=== PATIENT | male | born 1970 | race Caucasian/White ===

== ENCOUNTER 2016-05-13 13:45 | Inpatient (IN) | payer MEDICAID ==
--- NOTE | ~2016-05-13 | PN ---
Unit #: [id number] #: [id number] Patient: ARTIS LEÓN [id number] [facility] [address] [place] [address] [id number] I MR#: [id number] NAME: ARTIS LEÓN ROOM: [facility] Age: 45 Sex: M Admission Date: 05/13/2016 : 1970 Attending Physician: Carmen Barraza M.D. Admitting Physician: Stanford Stoddard PROGRESS NOTES DATE May 19, 2016 DISCUSSION Mr. León is a 45-year-old white male, who was seen today and chart was reviewed and the case was discussed with the staff. He has been anxious, withdrawn, but has been rather seclusive to himself. Meanwhile, he has been cooperative with the treatment recommendations and has been taking the medications and tolerating them fairly well with no reported side effects. MENTAL STATUS EXAMINATION Middle-aged white male, who was casually dressed with fair personal hygiene and appears to be in no acute distress or discomfort. He was awake and alert on interaction with intact orientation. His mood is anxious with a congruent affect. His speech is slow and goal-directed. He denies any suicidal or homicidal ideations. His insight and judgment remain slightly impaired. TREATMENT PLAN 1. We will continue him on his current medications and treatment protocol, and will monitor his response to the medications, and make further adjustments as needed. 2. We will continue to followup. Dictated by... Stanford Stoddard/bear TD: 05/20/2016 09:51 JOB #: [id number] Unit #: [id number] #: [id number] Patient: ARTIS LEÓN PROGRESS NOTES Page 1 of 1 X Carmen Barraza MD X PROGRESS NOTE
--- NOTE | ~2016-05-13 | PN ---
Unit #: [id number] #: [id number] Patient: ARTIS LEÓN [id number] [facility] [address] [place] [address] [id number] MR#: [id number] NAME: ARTIS LEÓN ROOM: [facility] Age: 45 Sex: M Admission Date: 05/13/2016 : 1970 Attending Physician: Carmen Barraza M.D. Admitting Physician: Stanford Stoddard PROGRESS NOTES DATE OF SERVICE: 05/17/2016 SUBJECTIVE Mr. León is a 45-year-old white male with alcohol dependence and mood disorder, who was seen today and chart was reviewed and the case was discussed with the staff. He has been anxious, withdrawn, unkempt, disheveled, disorganized, laying in his bed, and reports not feeling good and has been shaky and tremulous and complaining of upper respiratory infection and has been coughing and reports that he has dry hacking cough with sputum and has not been able to take care of his personal hygiene. MENTAL STATUS EXAMINATION Middle-aged white male, who was casually dressed with marginal personal hygiene, appears to be in distress and discomfort. He was awake and alert with intact orientation. His mood was anxious with a congruent affect. His speech was slow and restricted in content. He denies any suicidal or homicidal ideation and also denies any auditory or visual hallucinations. His insight and judgment remain slightly impaired. TREATMENT PLAN 1. We will continue him on his current treatment protocol. We will monitor his response to the medications and make further adjustments as needed. 2. We will continue to follow up. Dictated by... Stanford Stoddard/linh TD: 05/17/2016 13:26 JOB #: [id number] Unit #: [id number] #: [id number] Patient: ARTIS LEÓN PROGRESS NOTES Page 1 of 1 X Carmen Barraza MD PROGRESS NOTE
--- NOTE | ~2016-05-13 | PA ---
Unit #: [id number] #: [id number] Patient: ARTIS LEÓN [id number] [facility] [address] [place] [address] [id number] MR#: [id number] NAME: ARTIS LEÓN ROOM: [facility] Age: 45 Sex: M Admission Date: 05/13/2016 : 1970 Date of Assessment: 05/13/2016 Attending Physician: Carmen Barraza M.D. Admitting Physician: Carmen Barraza M.D. PSYCHIATRIC ASSESSMENT DATE OF SERVICE 05/13/2016. IDENTIFYING DATA Mr. León is a 45-year-old single white male, who is a resident of [place], [place], and was transferred to us from [facility] on a voluntary basis and had a blood alcohol level of 0.103. CHIEF COMPLAINT Withdrawing from alcohol. HISTORY OF PRESENT ILLNESS Mr. León is a 45-year-old white male, who presented to the emergency room at [facility] in [place], [place], with alcohol withdrawal symptoms including shakiness and nausea and stomach cramps and sensitive to light and numbness on his fingers, increasing anxiety, depression, and had a CIWA score of 12 indicating significant withdrawal symptoms. He reports that he has been drinking fluid, 4 ounces of beers to two-fifth of whiskey a day for the past year with longest sobriety of 3 days and was seen to be in acute distress or discomfort. He denies any other substance abuse. He does report depression, anxiety, and irritability, and restlessness, disturbed sleep, appetite, poor energy level, psychomotor retardation. Reports that he attempted suicide at the age of 20 by cutting his wrist and reports that he has thoughts of wanting to with increasing depression over the last winter. He currently denies any suicidal thoughts, intent, or plan. SUBSTANCE ABUSE HISTORY The patient reports that he has been drinking since he was 7 years old and currently has been drinking up to 2/5 a day and denies any other drug abuse and reports alcohol to be his drug of choice. PAST PSYCHIATRIC HISTORY The patient has had history of inpatient chemical dependency treatment at [facility] in [place], [place] in the past and currently he is not active in any treatment program. He is not seeing a psychiatrist, and not taking any psychotropic medications. PAST MEDICAL HISTORY No acute or chronic medical illnesses. ALLERGIES Penicillin. Unit #: [id number] #: [id number] Patient: ARTIS LEÓN PERSONAL AND SOCIAL HISTORY A 45-year-old white male, who reports that he is single, unemployed, and essentially homeless and has poor social support system. MENTAL STATUS EXAMINATION Middle-aged white male, who was casually dressed with fair personal hygiene, appears to be in no acute distress or discomfort. He was awake and alert on interaction with intact orientation to time, place, and person. His mood was anxious and depressed with a congruent affect. His speech was slow and restricted in content. His thought processes were disorganized with some looseness of associations and flight of ideas and suicidal ideations. His insight and judgment remain significantly impaired. DIAGNOSTIC IMPRESSION Psychiatric: Alcohol dependence, moderate, in acute withdrawals; alcohol-induced mood disorder. Medical: None. Stressors: Psychosocial stressors. TREATMENT PLAN 1. The patient has presented with a history of alcohol dependence and mood disorder, and has been decompensating and will need inpatient hospitalization for detoxification and safety and stabilization. We will start him back on his home medications. We will adjust the medications and monitor response. 2. Supportive therapy was provided to the patient. 3. Safe, structured, and nourishing environment will be reported. ESTIMATED LENGTH OF STAY 5 to 7 days. ABILITY TO HELP SELF Limited. WILLINGNESS TO HELP SELF The patient appears to be willing to help self. STRENGTHS 1. Communicative. 2. Cooperative. PROBLEMS 1. Chronic dysphoric symptoms. 2. Poor social support system. DISCHARGE CRITERIA This will be contingent upon the patient's ability to show resolution of his depression and anxiety and his ability to stay safe to himself, particularly after discharge from the hospital. Dictated by... Stanford Stoddard/linh Unit #: [id number] #: [id number] Patient: ARTIS LEÓN TD: 05/14/2016 06:42 JOB #: [id number] PSYCHIATRIC ASSESSMENT Page 1 of 1 X Carmen Barraza MD PSYCHIATRIC ASSESSMENT
--- NOTE | ~2016-05-13 | HP ---
Unit #: [id number] #: [id number] Patient: RAPHAEL LEÓN [id number] [facility] [address] [place] [address] [id number] MR#: [id number] NAME: RAPHAEL LEÓN ROOM: [facility] Age: 45 Sex: M Admission Date: 05/13/2016 : 1970 Attending Physician: Carmen Barraza M.D. Admitting Physician: Carmen Barraza M.D. HISTORY AND PHYSICAL HISTORY OF PRESENT ILLNESS Raphael is a 45 year old admitted to [facility] because of his abuse of alcohol. He is detoxing. PAST MEDICAL HISTORY History of alcohol abuse. PAST SURGICAL HISTORY Nothing reported. ALLERGIES Penicillin. SOCIAL HISTORY Smokes one pack per day. Drinks two fifths of liquor on a daily basis and denies illicit drug use. FAMILY HISTORY Medically noncontributory. REVIEW OF SYSTEMS CONSTITUTIONAL: No fever or chills. HEENT: Denies any sore throat, ear pain or runny nose. CARDIOVASCULAR: Denies chest pain, irregular heart rhythm or palpitations. CHEST: Denies shortness of breath or cough. No hemoptysis. GASTROINTESTINAL: Denies nausea, vomiting, diarrhea or chronic constipation. ENDOCRINE: Denies history of increased thirst or urination. No recent significant weight loss or gain. GENITOURINARY: Denies dysuria, frequency, or hematuria. SKIN: Denies any rashes. HEMATOLOGIC: Denies history of increased bleeding or bruising. MUSCULOSKELETAL: Denies any hot, swollen joints. No generalized muscle pain. NEUROLOGIC: Denies problems with vision or speech. No frequent, severe headaches. No numbness, tingling or weakness in any extremities. Denies loss of bladder or bowel control. CURRENT MEDICATIONS Detox protocol. PHYSICAL EXAMINATION GENERAL: Alert, well nourished. No apparent distress. Unit #: [id number] #: [id number] Patient: RAPHAEL LEÓN VITAL SIGNS: Blood pressure 120/76, heart rate 80, respirations 16, and temperature 98.6. WEIGHT: 152. HEIGHT: 5 feet 11 inches. SKIN: Warm and dry without rash or lesion. HEENT: Normocephalic. TMs not viewed. Oral and nasal passages clear. Conjunctivae clear. PERRLA. EOMs intact. NECK: Supple without lymphadenopathy or thyromegaly. HEART: Regular rate and rhythm without murmur. LUNGS: Clear. ABDOMEN: Soft, nontender. : Not done. EXTREMITIES: No evidence of cyanosis, clubbing or edema. Moves all without focal deficit. NEUROLOGICAL: Grossly within normal limits. Cranial Nerves: II: Visual sultana are intact. III, IV AND : Extraocular movements are intact. Pupils are equal, round and reactive to light. V: Facial sensation is grossly normal. VII: Facial movements and expression are normal. VIII: Auditory acuity grossly intact. IX, X: Uvula is midline. Phonation is normal. XI: Patient shrugs shoulders and turns head normally. XII: Tongue protrudes in the midline. Sensory and Motor Function: Sensory and motor sensation is grossly normal. Motor: moves all extremities well. Coordination: Gait is normal. Deep Tendon Reflexes: Intact. IMPRESSION Psychiatric admission. RECOMMENDATIONS PSYCHIATRIC: Per psychiatrist. MEDICAL: I see no contraindication to participate in this facility's activities. MEDICAL PROGNOSIS Good. MEDICAL CONDITION Stable. Dictated by... Sulema Leigh P.A.-C. for Stanford Hernandez/concepcion TD: 05/14/2016 11:09 JOB #: [id number] Unit #: [id number] #: [id number] Patient: RAPHAEL LEÓN HISTORY AND PHYSICAL Page 1 of 1 X Sulema Leigh HISTORY AND PHYSICAL
--- NOTE | ~2016-05-13 | PN ---
Unit #: [id number] #: [id number] Patient: ARTIS LEÓN [id number] [facility] [address] [place] [address] [id number] I MR#: [id number] NAME: ARTIS LEÓN ROOM: [facility] Age: 45 Sex: M Admission Date: 05/13/2016 : 1970 Attending Physician: Carmen Barraza M.D. Admitting Physician: Stanford Stoddard PROGRESS NOTES DATE 05/15/2016 DISCUSSION Mr. León is a 45-year-old, male who was seen today and chart was reviewed and case was discussed with the staff. He has been anxious, withdrawn though has not shown any agitation, irritability and has been cooperative with treatment recommendations and appears to be doing somewhat better than yesterday though still appears to be in distress and discomfort and detoxing. Meanwhile, he has been taking the medication and tolerating them fairly well with no reported side effects. MENTAL STATUS EXAM Middle-aged white male who was casually dressed with fair personal hygiene, appears to be in no acute distress or discomfort. He was awake and alert with intact orientation. His mood was anxious with congruent affect. His speech was slow and restricted in content. His thought process was disorganized with some looseness of associations. His insight and judgement remains significantly impaired. TREATMENT PLAN 1. We will continue him on his current medications and treatment protocol. We will monitor his response to medication and make further adjustments as needed. 2. We will continue to follow up. Dictated by... Stanford Stoddard/soniya TD: 05/19/2016 01:44 JOB #: [id number] Unit #: [id number] #: [id number] Patient: ARTIS LEÓN PROGRESS NOTES Page 1 of 1 X Carmen Barraza MD PROGRESS NOTE
--- NOTE | ~2016-05-13 | PN ---
Unit #: [id number] #: [id number] Patient: ARTIS LEÓN [id number] [facility] [address] [place] [address] [id number] I MR#: [id number] NAME: ARTIS LEÓN ROOM: [facility] Age: 45 Sex: M Admission Date: 05/13/2016 : 1970 Attending Physician: Carmen Barraza M.D. Admitting Physician: Stanford Stoddard PROGRESS NOTES DATE May 16, 2016 DISCUSSION Mr. León is a 45-year-old white male, with bipolar mood disorder, who was seen today and chart was reviewed and the case was discussed with the staff. He has been anxious, withdrawn, seclusive and lying in his bed and shaking and tremulous and reports that he has received Ativan this morning but he has not been feeling very well and appears to be in the midst of alcohol detox which he has been taking the medications and tolerating them fairly well with no reported side effects. MENTAL STATUS EXAMINATION Young white male, who was casually dressed with fair personal hygiene and appears to be in no acute distress or discomfort. He was awake and alert on interaction with intact orientation. His mood is anxious with a congruent affect. His speech is slow and restricted in content. He denies any suicidal or homicidal ideations, and also denies any auditory or visual hallucinations. His insight and judgment remain slightly impaired. TREATMENT PLAN 1. We will continue him on his current medications and treatment protocol, and will monitor his response to the medications, and make further adjustments as needed. 2. We will continue to followup. Dictated by... Stanford Stoddard/bear TD: 05/19/2016 10:39 JOB #: [id number] Unit #: [id number] #: [id number] Patient: ARTIS LEÓN PROGRESS NOTES Page 1 of 1 X Carmen Barraza MD PROGRESS NOTE
--- NOTE | ~2016-05-13 | CO ---
Unit #: [id number] #: [id number] Patient: RAPHAEL LEÓN [id number] [place] [address] [id number] I MR#: [id number] NAME: RAPHAEL LEÓN ROOM: [facility] Age: 45 Sex: M Admission Date: 05/13/2016 : 1970 Attending Physician: Carmen Barraza M.D. CONSULTATION REPORT SUBJECTIVE Raphael is a 45-year-old, recently admitted because of his abuse of alcohol. He also has history of COPD. He has reported a cough productive of small amounts of white to light yellow sputum over the past 1 or 2 days. He denies any increased shortness of breath and there have been no recorded increased temperatures. We have been asked to assess and treat. OBJECTIVE GENERAL: Alert, well nourished, in no apparent distress. VITAL SIGNS: Blood pressure 100/74, heart rate 80, respirations 16, and T-max 98.6. HEENT: Normocephalic. TMs not viewed. Oral and nasal passages clear. NECK: Supple without lymphadenopathy. CHEST: Bilateral wheezes, but otherwise clear. ASSESSMENT Chronic obstructive pulmonary disease. PLAN Albuterol inhaler 2 puffs q.4 hours p.r.n. and Tessalon Perles 200 mg one p.o. t.i.d. x3 days. Dictated by... Sulema Leigh P.A.-C. for Stanford Hernandez/linh TD: 05/18/2016 18:26 JOB #: [id number] CONSULTATION REPORT Page 1 of 1 X Sulema Leigh CONSULTATION REPORT
--- NOTE | ~2016-05-13 | PN ---
Unit #: [id number] #: [id number] Patient: ARTIS LEÓN [id number] [facility] [address] [place] [address] [id number] I MR#: [id number] NAME: ARTIS LEÓN ROOM: [facility] Age: 45 Sex: M Admission Date: 05/13/2016 : 1970 Attending Physician: Carmen Barraza M.D. Admitting Physician: Stanford Stoddard PROGRESS NOTES DATE 05/18/2016 DISCUSSION Mr. León is a 45-year-old, white male who was seen today and chart was reviewed and case was discussed with the staff. She appears to be doing better and appears to be coming out of the detox without any complications and has been taking the medications and tolerating them fairly well with no reported side effects. MENTAL STATUS EXAM Middle-aged white male who was casually dressed with fair personal hygiene, appears to be in no acute distress or discomfort. He was awake and alert with impaired attention and concentration. His mood was anxious with congruent affect denies any suicidal or homicidal ideation. His insight and judgement remains slightly impaired. TREATMENT PLAN 1. We will continue him on his current medications and treatment protocol. We will monitor his response to the medications and make further adjustments as needed. 2. We will continue to follow up. Dictated by... Stanford Stoddard/soniya TD: 05/19/2016 23:43 JOB #: [id number] Unit #: [id number] #: [id number] Patient: ARTIS LEÓN PROGRESS NOTES Page 1 of 1 X Carmen Barraza MD PROGRESS NOTE
--- NOTE | ~2016-05-13 | PN ---
Unit #: [id number] #: [id number] Patient: ARTIS LEÓN [id number] [facility] [address] [place] [address] [id number] I MR#: [id number] NAME: ARTIS LEÓN ROOM: [facility] Age: 45 Sex: M Admission Date: 05/13/2016 : 1970 Attending Physician: Carmen Barraza M.D. Admitting Physician: Stanford Stoddard PROGRESS NOTES DATE 05/14/2016 DISCUSSION Mr. León is a 24-year-old, white male with alcohol dependence who was seen today and chart was reviewed and case was discussed with the staff. He was seen to be in acute distress and discomfort. He was unkempt, disheveled with significant body odor and was shaking and tremulous and unable to even sit up in his bed and appears to (:31) going into acute detox from alcohol. No agitation or aggression has been noted. MENTAL STATUS EXAM Middle-aged white male who was casually dressed with marginal personal hygiene, appears to be in slight distress or discomfort. He was awake and alert on interaction with impaired attention and concentration. His mood was anxious with congruent affect. His speech was slow and restricted in content. His thought processes were disorganized with some looseness of associations. His insight and judgement remains significantly impaired. TREATMENT PLAN 1. We will continue him on his current medications and treatment protocol. We will monitor his response to medication and make further adjustments as needed. 2. We will continue to follow up. Dictated by... Stanford Stoddard/soniya TD: 05/18/2016 02:27 JOB #: [id number] Unit #: [id number] #: [id number] Patient: ARTIS LEÓN PROGRESS NOTES Page 1 of 1 X Carmen Barraza MD PROGRESS NOTE
--- NOTE | ~2016-05-13 | DS ---
Unit #: [id number] #: [id number] [facility]: [facility]N [id number] [facility] [address] [place] [address] [id number] I MR#: [id number] NAME: ARTIS LEÓN ROOM: [facility] Age: 45 Sex: M Admission Date: 05/13/2016 : 1970 Discharge Date: 05/20/2016 Attending Physician: Carmen Barraza M.D. DISCHARGE SUMMARY IDENTIFYING DATA Mr. León is a 45-year-old single white male, who is a resident of [place], [place], and was transferred to us from [facility] on a voluntary basis and had a blood alcohol level of 0.103. DISCHARGE DIAGNOSES Psychiatric: Alcohol dependence, moderate and acute withdrawals; alcohol-induced mood disorder. Medical: None. Stressors: Moderate psychosocial stressors. HISTORY OF PRESENT ILLNESS Please see initial psychiatric evaluation for details. PAST PSYCHIATRIC HISTORY Please see initial psychiatric evaluation for details. PAST MEDICAL HISTORY Please see initial psychiatric evaluation for details. HOSPITAL COURSE The patient was admitted to the adult chemical dependency unit at [facility] and was oriented to the hospital environment. Routine p.r.n. medications were initiated, and he was started on the alcohol detox protocol and was closely monitored. He was taking the medications regularly and was tolerating them fairly well and was able to come out of the detox without any complications and was willing to continue treatment on an outpatient basis and as such, it was decided that he will be discharged home and will continue treatment on an outpatient basis. DISCHARGE MEDICATIONS None. DISCHARGE CONDITION Stable. PROGNOSIS Fair. Dictated by... Carmen Barraza M.D. IAA/modl Unit #: [id number] #: [id number] Patient: ARTIS LEÓN TD: 05/20/2016 06:50 JOB #: [id number] DISCHARGE SUMMARY Page 1 of 1 X Carmen Barraza MD X DISCHARGE SUMMARY
== END 2016-05-20 09:41 | DRG 897 ==
LOC: P1E 13:45
PROC: HZ2ZZZZ Detoxification Services for Substance Abuse Treatment (ICD-10-PCS; principal; 2016-05-13)
DX: F10.239 Alcohol dependence with withdrawal, unspecified (principal); F10.24 Alcohol dependence with alcohol-induced mood disorder; Z88.0 Allergy status to penicillin; Z56.0 Unemployment, unspecified; Z59.0 Homelessness; F17.200 Nicotine dependence, unspecified, uncomplicated; J44.9 Chronic obstructive pulmonary disease, unspecified
CPT/HCPCS: 86592